=== PATIENT | female | born 1950 | race Caucasian/White ===

== ENCOUNTER 2017-01-19 09:46 | Emergency (ER) | payer OTHER ==
[~2017-01-19] VITALS: Ht 157.4 cm; Wt 110.2 kg
[~2017-01-19 09:46] MED LIST: ANTIVERT25 MG PO; ASPIRIN81 M1 PO; ATORVASTATIN CA40 MG PO; B12,B-12,B 12500 MC1 PO; BACTROBAN OINT22 GM PO; CALCIUM WITH VI1 TA1 PO; CIPROFLOXACIN500 MG PO; ETODOLAC300 MG PO; IMDUR30 MG PO; IMODIUM2 MG PO; JANUMET 500 MG-1 TA1 PO; JANUMET 500 MG-1 TAB PO; LASIX40 MG PO; LEVEMIR FLEXPEN; LEXAPRO20 MG PO; LOPERAMIDE2 MG PO; MAG-OX 400400 MG PO; METFORMIN HCL500 MG PO; METOPROLOL50 MG PO; MULTIVITAMIN WI1 CAP PO; NORVASC5 MG PO; NOVOLOG100 U/ML SC; OMEPRAZOLE20 MG PO; REQUIP0.5 MG PO; ROXICET 325 MG240 ML PO; SIMVASTATIN20 MG PO; TOPROL XL50 MG PO; VASOTEC5 MG PO; VICODIN 5/500 505 MG PO; XANAX0.25 MG PO
[2017-01-19 09:53] VITALS: BP 153/68
[2017-01-19 10:04] LABS: BASO # 0.1 10*3/uL (0.0-0.1); BASO % 0.9 % (0.0-1.0); EOS # 0.2 10*3/uL (0.0-0.4); EOS % 2.7 % (1.0-4.0); HEMATOCRIT 39.9 % (37.0-47.0); LYMPH # 2.6 10*3/uL (1.3-4.4); LYMPH % 33.7 % (27.0-41.0); MEAN CELL VOLUME 81.8 fl (81.0-99.0); MEAN CORPUSCULAR HGB 24.6 pg (27.0-31.0); MEAN CORPUSCULAR HGB CONC 30.1 g/dl (33.0-37.0); MEAN PLATELET VOLUME 10.4 fl (9.6-12.3); MONO # 0.4 10*3/uL (0.1-1.0); MONO % 5.5 % (3.0-9.0); NEUT # 4.4 10*3/uL (2.3-7.9); NEUT % 57.1 % (47.0-73.0); PLATELET COUNT AUTOMATED 320 10*3/uL (130-400); RED BLOOD COUNT 4.88 10*6/uL (4.10-5.10); RED CELL DISTRI WIDTH 14.8 % (0-14.5); WHITE BLOOD COUNT 7.7 10*3/uL (4.8-10.8)
[2017-01-19 10:21] LABS: ALBUMIN 3.4 gm/dl (3.1-4.5); ALKALINE PHOSPHATASE 115 U/L (45-117); BUN 16 mg/dl (7-24); CHLORIDE 109 mmol/L (98-107); CPK 65 U/L (26-192); CREATININE 0.66 mg/dL (0.55-1.02); LIPASE 91 U/L (73-393); MAGNESIUM 1.9 mg/dL (1.5-2.1); POTASSIUM 4.1 mmol/L (3.5-5.1); SGOT/AST 13 IU/L (3-35); SGPT/ALT 21 U/L (12-78); SODIUM 144 mmol/L (136-145); TOTAL PROTEIN 6.8 gm/dL (6.4-8.2)
[2017-01-19 10:22] LABS: CKMB < 0.5 ng/ml (0.5-3.6); TROPONIN I < 0.015 ng/ml (<0.045)
[2017-01-19 10:34] LABS: ACT PARTIAL THROMBO TIME 25.5 SECONDS (20.8-31.5)
[2017-01-19 11:58] LABS: BILIRUBIN 1+ (NEGATIVE); BLOOD NEGATIVE (NEGATIVE); CLARITY SL CLOUDY (CLEAR); COLOR YELLOW (YELLOW); GLUCOSE NEGATIVE (NEGATIVE); KETONE 1+ (NEGATIVE); LEUKO ESTERASE NEGATIVE (NEGATIVE); NITRITE NEGATIVE (NEGATIVE); PH 5.5 (5.0-9.0); SPECIFIC GRAVITY >= 1.030 (1.005-1.030); UROBILINOGEN 0.2 E.U./dl (0.2-1.0)
[2017-01-19 12:05] LABS: MUCOUS 3+
[2017-01-19 12:06] LABS: BACTERIA TRACE; CALCIUM OXALATE CRYSTALS 1+
[2017-01-19] MEDS ORDERED: NORCO 5-325 TA1 EACH PO (12:30)
== END 2017-01-19 12:49 | disposition home or self-care (01) ==
LOC: ED 09:46
PROVIDERS: Emergency Medicine
DX: S30.1XXA Contusion of abdominal wall, initial encounter (principal); Z90.710 Acquired absence of both cervix and uterus; Z98.890 Other specified postprocedural states; Z79.899 Other long term (current) drug therapy; Z79.82 Long term (current) use of aspirin; Z88.0 Allergy status to penicillin; Z88.1 Allergy status to other antibiotic agents; V49.59XA Passenger injured in collision with other motor vehicles in traffic accident, initial encounter; Y93.89 Activity, other specified; Y92.413 State road as the place of occurrence of the external cause; Y99.9 Unspecified external cause status

== ENCOUNTER 2017-04-18 21:17 | Inpatient (IN) | payer OTHER ==
[~2017-04-18] VITALS: Ht 157.5 cm; Wt 112.1 kg
--- NOTE | ~2017-04-18 | ST ---
[place], [place] EXERCISE STRESS TEST REPORT NAME: SARA CLARK [facility] #: [id number] UNIT #: [id number] ROOM: 411 DOCTOR: BRAD MCCALLUM MD BIRTHDATE: [birth year] DOS: 04/19/2017 LEXISCAN STRESS EKG REFERRING PHYSICIAN: Dr. Morales. INDICATION: Central chest pain. The patient underwent standard protocol Lexiscan stress EKG. The patient's baseline EKG shows normal sinus rhythm, nonspecific ST-T wave changes. The patient's resting heart rate is 67 with a blood pressure 124/72. The patient's peak heart rate is 99 with a blood pressure 144/70. The patient denied chest pain. No arrhythmias were noted. No significant EKG changes. No significant new EKG changes were noted. The patient does have some T-wave inversions in the inferior lateral leads that were worsened from baseline. SUMMARY OF FINDINGS: Worsening of baseline abnormalities of EKG. No chest pain ____. Please see separate report for perfusion scan results. BRAD MCCALLUM MD CM:STRESS:EXERCISE STRESS TEST REPORT [id number] BRAD MCCALLUM MD
[~2017-04-18 21:17] MED LIST changes: +NORCO 5-325 TA1 EACH PO
[2017-04-18 21:18] VITALS: BP 162/70
[2017-04-18 21:31] LABS: BASO # 0.1 10*3/uL (0.0-0.1); EOS # 0.2 10*3/uL (0.0-0.4); EOS % 2.4 % (1.0-4.0); HEMATOCRIT 38.4 % (37.0-47.0); HEMOGLOBIN 11.7 g/dl (12.0-16.0); LYMPH # 2.9 10*3/uL (1.3-4.4); LYMPH % 32.1 % (27.0-41.0); MEAN CELL VOLUME 80.7 fl (81.0-99.0); MEAN CORPUSCULAR HGB 24.6 pg (27.0-31.0); MEAN CORPUSCULAR HGB CONC 30.5 g/dl (33.0-37.0); MEAN PLATELET VOLUME 10.1 fl (9.6-12.3); MONO # 0.6 10*3/uL (0.1-1.0); NEUT # 5.1 10*3/uL (2.3-7.9); NEUT % 56.9 % (47.0-73.0); PLATELET COUNT AUTOMATED 314 10*3/uL (130-400); RED BLOOD COUNT 4.76 10*6/uL (4.10-5.10); RED CELL DISTRI WIDTH 15.9 % (0-14.5); WHITE BLOOD COUNT 8.9 10*3/uL (4.8-10.8)
[2017-04-18 21:41] LABS: ACT PARTIAL THROMBO TIME 25.1 SECONDS (20.8-31.5)
[2017-04-18 21:47] LABS: ALBUMIN 3.2 gm/dl (3.1-4.5); ALKALINE PHOSPHATASE 125 U/L (45-117); BUN 15 mg/dl (7-24); CHLORIDE 110 mmol/L (98-107); POTASSIUM 4.4 mmol/L (3.5-5.1); SGOT/AST 8 IU/L (3-35); SGPT/ALT 18 U/L (12-78); SODIUM 144 mmol/L (136-145); TOTAL PROTEIN 6.7 gm/dL (6.4-8.2)
[2017-04-18 21:48] LABS: TROPONIN I < 0.015 ng/ml (<0.045)
[2017-04-19 00:50] VITALS: BP 171/80
--- NOTE | 2017-04-19 00:50 | NUR ---
A 67, admitted to , under the services of EUN Norman DO with a diagnosis of CHEST PAIN,ELEVATED ALK PHOS, ANEMIA. Chief complaint is C/O MID STERNAL CHEST PAIN AT HOME BROUGHT HERE BY AMBULANCE, ASA AND NITRO GIVEN IN ROUTE TO HOSPITAL BY EMS, HAD NITRO X2 IN ER WITHOUT PAIN RELIEF, MORPHINE AND ZOFRAN GIVEN IN ER PAIN EFFECTIVE. CHEST PAIN MORE BURNING PER PT. Patient arrived via CART from ER. Monitor applied. Initial assessment completed. Vital signs taken and recorded. EUN NORMAN DO notified of admission to the unit. Orders received. See assessment for past medical history, medications and allergies. Patient and/or family oriented to unit. [facility] visitation policy reviewed. Clothing/patient valuable form completed. NAPOLEON PATEL
[2017-04-19 00:55] VITALS: BP 171/80
--- NOTE | 2017-04-19 01:22 | NUR ---
PT. UNABLE TO RECONCILLE HOME MEDICATIONS UNSURE OF ALL THAT SHE TAKES FORGOT TO BRING MEDICATION LIST FROM HOME. MEDS NEED RECONCILLED.
[2017-04-19 03:43] LABS: BASO # 0.1 10*3/uL (0.0-0.1); EOS # 0.3 10*3/uL (0.0-0.4); EOS % 2.7 % (1.0-4.0); HEMATOCRIT 34.7 % (37.0-47.0); HEMOGLOBIN 10.7 g/dl (12.0-16.0); LYMPH # 3.9 10*3/uL (1.3-4.4); LYMPH % 38.6 % (27.0-41.0); MEAN CELL VOLUME 79.2 fl (81.0-99.0); MEAN CORPUSCULAR HGB 24.4 pg (27.0-31.0); MEAN CORPUSCULAR HGB CONC 30.8 g/dl (33.0-37.0); MEAN PLATELET VOLUME 10.1 fl (9.6-12.3); MONO # 0.6 10*3/uL (0.1-1.0); MONO % 6.3 % (3.0-9.0); NEUT # 5.1 10*3/uL (2.3-7.9); NEUT % 51.2 % (47.0-73.0); PLATELET COUNT AUTOMATED 289 10*3/uL (130-400); RED BLOOD COUNT 4.38 10*6/uL (4.10-5.10); RED CELL DISTRI WIDTH 15.9 % (0-14.5)
[2017-04-19 03:54] LABS: ACT PARTIAL THROMBO TIME 25.1 SECONDS (20.8-31.5)
[2017-04-19 04:03] LABS: ALKALINE PHOSPHATASE 106 U/L (45-117); BUN 16 mg/dl (7-24); CHLORIDE 111 mmol/L (98-107); CHOLESTEROL 171 mg/dL (<200); CREATININE 0.55 mg/dL (0.55-1.02); PHOSPHOROUS 3.4 mg/dL (2.5-4.9); SGOT/AST 10 IU/L (3-35); SGPT/ALT 14 U/L (12-78); SODIUM 145 mmol/L (136-145); TRIGLYCERIDES 80 mg/dl (<150); VLDL CHOLESTEROL 16 mg/dL (6-40)
[2017-04-19 04:09] LABS: HDL CHOLESTEROL 37 mg/dl (40-60); LDL CHOLESTEROL 118 mg/dL (9-159)
--- NOTE | 2017-04-19 06:23 | NUR ---
called and message left with answering service for Dr. Gramajo.
[2017-04-19 07:04] LABS: VITAMIN D, 25-HYDROXY 7.5 ng/mL (30-100)
--- NOTE | 2017-04-19 07:10 | NUR ---
DR. MADRIGAL CALLED BACK AND NOTIFIED OF CONSULT AND NO ORDERS RECEIVED AT THIS TIME.
--- NOTE | 2017-04-19 08:40 | NUR ---
SETTING AT SIDE OF BED, EASY RESPIRATIONS WITH SKIN W/D. PT DENIES C/O CHEST PAIN AT PRESENT TIME. ADMITS TO S.O.B WITH EXERTION. DISCUSSED NPO STATUSUS FOR STRESS TEST, PT VOICES UNDERSTANDING. SEE SHIFT ASSESSMENT.
[2017-04-19 08:41] VITALS: BP 154/84
--- NOTE | 2017-04-19 09:00 | NUR ---
Sheet Turner in to talk to patient. Patient states lives at home with alone. There are no steps in the home. Physician: linda miller [facility]: [facility] Home health services: none Patient's level of ADLs: INDEPENDENT Patient has working utilities: all working DME: cane, walker, life alert Follow-up physician's appointment after d/c: will be made by hospialist nurse director Does patient want to access PORTAL?: no Discharge plan discussed with patient, patient lives at [facility] alone, she uses a cane or walker for ambulation, she states she gets around fine, she has neighbors take her to get groceries or for doctors appointments, patient states she will be going back home and denies any home needs DMITRI ARNETT
--- NOTE | 2017-04-19 12:01 | NUR ---
INFORMED CONSENT SIGNED FOR A LEXISCAN WITH DR. MCCALLUM. RESTING EKG NSR WITH A HR OF 67 WITH A BP OF 124/72. POX 94% VIA RA LUNGS CLEAR BILATERALLY. COMPLETED ONE MINUTE OF LEXISCAN PROTOCOL RECEIVING LEXISCAN 0.4 MG OVER 10 SECONDS. DEVELOPED A WARM FEELING AND VOICED "ODD." BOTH RELIEVED IN RECOVERY. PEAK HR OF 99 WITH A BP OF 144/70. LAST RECOVERY HR OF 81 WITH A BP OF 142/64. AWAITING NUCLEAR IMAGING IN STABLE CONDITION.
[2017-04-19] MEDS ORDERED: CYMBALTA20 M1 PO (13:51)
[2017-04-19] MEDS ORDERED: ZESTRIL10 MG PO (13:51)
--- NOTE | 2017-04-19 13:53 | NUR ---
AFTER CALLING TWO DIFFERENT PHARMACIES, MED REC NOW UPDATED & CORRECT. WILL NOTIFY DR CRUMP.
[2017-04-19 16:00] VITALS: BP 166/84
--- NOTE | 2017-04-19 17:53 | NUR ---
MEDICATED PO ORDERED PER PT REQUEST FOR C/O OCAMPO. SEE EMAR.
[2017-04-19 20:00] VITALS: BP 160/64
[2017-04-20] VITALS: BP 158/62
[2017-04-20 08:00] VITALS: BP 122/78
--- NOTE | 2017-04-20 08:00 | NUR ---
RESTING AT SIDE OF BED, EATING BREAKFAST. CONTINUES TO DENY C/O CHEST PAIN. ADMITS TO MILD S.O.B WITH AMBULATION. SEE SHIFT ASSESSMENT.
--- NOTE | 2017-04-20 09:00 | NUR ---
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
--- NOTE | 2017-04-20 09:15 | NUR ---
SW SPOKE WITH PT ABOT DISCHARGE PLANS. PT AGREED TO HOME HEALTH WITH [facility] FOR NURSE AND PT. SW WILL MAKE REFERRAL UPON DISCHARGE.
--- NOTE | 2017-04-20 09:24 | NUR ---
FRIDA WASHINGTON IN TO SEE PT.
--- NOTE | 2017-04-20 09:28 | NUR ---
TYLENOL PO ORDERED PER PT REQUEST FOR C/O FRONTAL OCAMPO. SEE EMAR.
[2017-04-20 12:00] VITALS: BP 184/60
[2017-04-20 14:00] VITALS: BP 184/60
--- NOTE | 2017-04-20 14:02 | NUR ---
MEDICATED IV SLOWLY ORDERED PER PT REQUEST WITH ZOFRAN FOR C/O NAUSEA. SEE EMAR.
--- NOTE | 2017-04-20 14:47 | NUR ---
DR MCCALLUM IN TO SEE PT.
[2017-04-20] MEDS ORDERED: Vitamin D PO (16:20)
[2017-04-20] MEDS ORDERED: FEROSUL325 MG PO (16:32)
--- NOTE | 2017-04-20 18:09 | NUR ---
Discharge instructions reviewed with patient/family. Patient receptive and verbalizes understanding. Written instructions given to patient/family. ALYSSA SANCHEZ
--- NOTE | 2017-04-23 09:17 | NUR ---
SW FAXED REFERRAL TO [facility].
--- NOTE | 2017-04-23 10:49 | NUR ---
SW RECEIVED VM FROM [facility]. [facility] CAN NOT ACCEPT PT DUE TO [place] PRODUCT OF CARE AND CAID. PT CAN NOT HAVE SERVICES OUTSIDE OF [place].
== END 2017-04-20 18:08 | disposition home health service (06) | DRG 206 ==
LOC: ED 21:17 → 4E 04-19 00:23 → EDHOLD 04-19 00:23 → 4E 04-19 00:36
PROVIDERS: Emergency Medicine; Family Medicine; ADMIT Internal Medicine
PROC: 3E073KZ Introduction of Other Diagnostic Substance into Coronary Artery, Percutaneous Approach (ICD-10-PCS; principal; 2017-04-19)
PROC: 4A02XM4 Measurement of Cardiac Total Activity, External Approach (ICD-10-PCS; principal; 2017-04-19)
DX: M94.0 Chondrocostal junction syndrome [Tietze] (principal); I11.0 Hypertensive heart disease with heart failure; I50.9 Heart failure, unspecified; E78.5 Hyperlipidemia, unspecified; D50.9 Iron deficiency anemia, unspecified; F32.9 Major depressive disorder, single episode, unspecified; E11.9 Type 2 diabetes mellitus without complications; Z66 Do not resuscitate; Z51.5 Encounter for palliative care; R74.8 Abnormal levels of other serum enzymes; Z96.653 Presence of artificial knee joint, bilateral; F41.1 Generalized anxiety disorder; G25.81 Restless legs syndrome; Z86.73 Personal history of transient ischemic attack (TIA), and cerebral infarction without residual deficits; Z82.49 Family history of ischemic heart disease and other diseases of the circulatory system; Z82.3 Family history of stroke; Z79.899 Other long term (current) drug therapy; Z88.0 Allergy status to penicillin; Z91.048 Other nonmedicinal substance allergy status; Z79.82 Long term (current) use of aspirin; Z79.4 Long term (current) use of insulin; Z79.84 Long term (current) use of oral hypoglycemic drugs; Z90.710 Acquired absence of both cervix and uterus; Z83.3 Family history of diabetes mellitus; Z81.8 Family history of other mental and behavioral disorders; Z90.49 Acquired absence of other specified parts of digestive tract; Z98.84 Bariatric surgery status

== ENCOUNTER 2018-01-12 18:10 | Inpatient (IN) | payer OTHER, MEDICARE ==
[~2018-01-12] VITALS: Ht 160 cm; Wt 104.1 kg
--- NOTE | ~2018-01-12 | EKG ---
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 Electronically Signed On 01-13-2018 6:30:36 PDT by Barby Morin MD CM:EKGRPT:ELECTROCARDIOGRAM REPORT [id number] ALISIA NEWMAN DRAFT REPORT ALISIA HILL DO
[~2018-01-12 18:10] MED LIST changes: +CYMBALTA20 M1 PO; +FEROSUL325 MG PO; +Vitamin D PO; +ZESTRIL10 MG PO
[2018-01-12 18:13] VITALS: BP 172/70
[2018-01-12 18:49] LABS: BASO # 0.1 10*3/uL (0.0-0.1); EOS # 0.2 10*3/uL (0.0-0.4); EOS % 1.8 % (1.0-4.0); HEMATOCRIT 40.3 % (37.0-47.0); LYMPH # 3.1 10*3/uL (1.3-4.4); LYMPH % 35.1 % (27.0-41.0); MEAN CELL VOLUME 79.3 fl (81.0-99.0); MEAN CORPUSCULAR HGB 23.6 pg (27.0-31.0); MEAN CORPUSCULAR HGB CONC 29.8 g/dl (33.0-37.0); MEAN PLATELET VOLUME 11.8 fl (9.6-12.3); MONO # 0.5 10*3/uL (0.1-1.0); MONO % 5.5 % (3.0-9.0); NEUT # 4.9 10*3/uL (2.3-7.9); NEUT % 56.3 % (47.0-73.0); PLATELET COUNT AUTOMATED 291 10*3/uL (130-400); RED BLOOD COUNT 5.08 10*6/uL (4.10-5.10); RED CELL DISTRI WIDTH 15.8 % (0-14.5); WHITE BLOOD COUNT 8.7 10*3/uL (4.8-10.8)
[2018-01-12 18:59] LABS: ACT PARTIAL THROMBO TIME 24.7 SECONDS (20.8-31.5); INTERNATIONAL NORM RATIO 0.9 (2.0-3.5)
[2018-01-12 19:05] LABS: ALBUMIN 3.4 gm/dl (3.1-4.5); ALKALINE PHOSPHATASE 124 U/L (45-117); BUN 19 mg/dl (7-24); CHLORIDE 111 mmol/L (98-107); CREATININE 0.82 mg/dL (0.55-1.02); LIPASE 81 U/L (73-393); POTASSIUM 4.2 mmol/L (3.5-5.1); SGOT/AST 22 IU/L (3-35); SGPT/ALT 20 U/L (12-78); SODIUM 144 mmol/L (136-145); TROPONIN I < 0.015 ng/ml (<0.045)
[2018-01-12 19:27] VITALS: BP 178/64
[2018-01-12 19:33] LABS: BILIRUBIN NEGATIVE (NEGATIVE); BLOOD NEGATIVE (NEGATIVE); CLARITY SL CLOUDY (CLEAR); COLOR YELLOW (YELLOW); GLUCOSE NEGATIVE (NEGATIVE); KETONE TRACE (NEGATIVE); LEUKO ESTERASE TRACE (NEGATIVE); NITRITE NEGATIVE (NEGATIVE)
[2018-01-12 19:53] LABS: RBC TNTC rbc/hpf (0-2)
[2018-01-12 19:54] LABS: MUCOUS TRACE
[2018-01-12 20:24] VITALS: BP 190/70
[2018-01-12 21:01] VITALS: BP 190/70
[2018-01-12 21:11] VITALS: BP 180/78
[2018-01-13] VITALS (9 sets, daily range): BP systolic 143–168; BP diastolic 51–108
[2018-01-13 06:01] LABS: BASO # 0.1 10*3/uL (0.0-0.1); EOS # 0.1 10*3/uL (0.0-0.4); HEMOGLOBIN 10.5 g/dl (12.0-16.0); LYMPH # 3.2 10*3/uL (1.3-4.4); LYMPH % 44.9 % (27.0-41.0); MEAN CELL VOLUME 80.7 fl (81.0-99.0); MEAN CORPUSCULAR HGB 23.5 pg (27.0-31.0); MEAN CORPUSCULAR HGB CONC 29.2 g/dl (33.0-37.0); MEAN PLATELET VOLUME 11.9 fl (9.6-12.3); MONO # 0.4 10*3/uL (0.1-1.0); MONO % 6.2 % (3.0-9.0); NEUT # 3.2 10*3/uL (2.3-7.9); NEUT % 45.6 % (47.0-73.0); PLATELET COUNT AUTOMATED 241 10*3/uL (130-400); RED BLOOD COUNT 4.46 10*6/uL (4.10-5.10); RED CELL DISTRI WIDTH 15.7 % (0-14.5); WHITE BLOOD COUNT 7.1 10*3/uL (4.8-10.8)
[2018-01-13 06:31] LABS: BUN 17 mg/dl (7-24); CHLORIDE 110 mmol/L (98-107); CHOLESTEROL 138 mg/dL (<200); CREATININE 0.58 mg/dL (0.55-1.02); HDL CHOLESTEROL 33 mg/dl (40-60); LDL CHOLESTEROL 91 mg/dL (9-159); PHOSPHOROUS 3.4 mg/dL (2.5-4.9); POTASSIUM 3.7 mmol/L (3.5-5.1); SODIUM 146 mmol/L (136-145); TRIGLYCERIDES 69 mg/dl (<150); VLDL CHOLESTEROL 14 mg/dL (6-40)
[2018-01-13 08:04] LABS: VITAMIN D, 25-HYDROXY 7.8 ng/mL (30-100)
[2018-01-14] VITALS: BP 158/68
[2018-01-14 04:00] VITALS: BP 144/55
[2018-01-14 06:30] LABS: BASO # 0.1 10*3/uL (0.0-0.1); BASO % 1.2 % (0.0-1.0); EOS # 0.2 10*3/uL (0.0-0.4); EOS % 2.6 % (1.0-4.0); HEMATOCRIT 36.8 % (37.0-47.0); HEMOGLOBIN 11.1 g/dl (12.0-16.0); LYMPH # 2.6 10*3/uL (1.3-4.4); LYMPH % 38.4 % (27.0-41.0); MEAN CORPUSCULAR HGB 23.8 pg (27.0-31.0); MEAN CORPUSCULAR HGB CONC 30.2 g/dl (33.0-37.0); MEAN PLATELET VOLUME 11.5 fl (9.6-12.3); MONO # 0.5 10*3/uL (0.1-1.0); MONO % 7.1 % (3.0-9.0); NEUT # 3.4 10*3/uL (2.3-7.9); NEUT % 50.4 % (47.0-73.0); PLATELET COUNT AUTOMATED 241 10*3/uL (130-400); RED BLOOD COUNT 4.66 10*6/uL (4.10-5.10); RED CELL DISTRI WIDTH 15.9 % (0-14.5); WHITE BLOOD COUNT 6.6 10*3/uL (4.8-10.8)
[2018-01-14 06:40] LABS: BUN 16 mg/dl (7-24); CHLORIDE 109 mmol/L (98-107); CREATININE 0.47 mg/dL (0.55-1.02); POTASSIUM 3.9 mmol/L (3.5-5.1); SODIUM 144 mmol/L (136-145)
[2018-01-14 12:00] VITALS: BP 150/60
[2018-01-14 16:00] VITALS: BP 136/58
[2018-01-14] MEDS ORDERED: LISINOPRIL10 M1 PO (16:56)
== END 2018-01-14 17:49 | disposition home health service (06) | DRG 312 ==
LOC: ED 18:10 → EDHOLD 20:41 → 4E 20:41
PROVIDERS: Emergency Medicine; Internal Medicine; Student in an Organized Health Care Education/Training Program
DX: I95.1 Orthostatic hypotension (principal); I50.32 Chronic diastolic (congestive) heart failure; E87.0 Hyperosmolality and hypernatremia; E44.1 Mild protein-calorie malnutrition; Z68.41 Body mass index [BMI] 40.0-44.9, adult; I16.0 Hypertensive urgency; E87.8 Other disorders of electrolyte and fluid balance, not elsewhere classified; E78.2 Mixed hyperlipidemia; R74.8 Abnormal levels of other serum enzymes; G25.81 Restless legs syndrome; R73.03 Prediabetes; E55.9 Vitamin D deficiency, unspecified; E53.8 Deficiency of other specified B group vitamins; D50.9 Iron deficiency anemia, unspecified; R00.1 Bradycardia, unspecified; F32.9 Major depressive disorder, single episode, unspecified; F41.1 Generalized anxiety disorder; I11.0 Hypertensive heart disease with heart failure; M19.90 Unspecified osteoarthritis, unspecified site; Z96.653 Presence of artificial knee joint, bilateral; Z90.49 Acquired absence of other specified parts of digestive tract; Z90.710 Acquired absence of both cervix and uterus; Z98.84 Bariatric surgery status; Z86.73 Personal history of transient ischemic attack (TIA), and cerebral infarction without residual deficits; Z82.3 Family history of stroke; Z82.49 Family history of ischemic heart disease and other diseases of the circulatory system; Z91.048 Other nonmedicinal substance allergy status; Z88.0 Allergy status to penicillin

== ENCOUNTER 2019-01-05 16:22 | Inpatient (IN) | payer OTHER ==
[~2019-01-05] VITALS: Ht 170.1 cm; Wt 108.0 kg
--- NOTE | ~2019-01-05 | EKG ---
[place], [place] ELECTROCARDIOGRAM REPORT NAME: SARA CLARK UNIT #: [id number] ROOM: 504 DOCTOR: MYLES DRAFT REPORT BIRTHDATE: [birth year] [facility] Test Date: 2019-01-05 Test Time: 18:30:39 Pat Name: SARA CLARK Department: Room: 504 Gender: F I O Psychologist: Aruna Saab : 1950 Requested By: PARISA FISCHER Order Number: [id number] Reading MD: Daniel Simons MD Measurements Intervals [place] Rate: 61 P: 12 TN: 155 QRS: 22 QRSD: 73 T: 91 QT: 422 QTc: 425 Interpretive Statements Sinus arrhythmia Borderline T abnormalities, lateral leads Compared to ECG 01/12/2018 18:49:42 T-wave abnormality now present Electronically Signed On 01-06-2019 10:58:55 PDT by Daniel Simons MD CM:EKGRPT:ELECTROCARDIOGRAM REPORT [id number] ANUROOP AVULA EPIPHANY DRAFT REPORT ANUROOP AVULA
[2019-01-05 16:22] VITALS: BP 187/72
[~2019-01-05 16:22] MED LIST changes: +LISINOPRIL10 M1 PO
[2019-01-05 17:36] LABS: BASO # 0.1 10*3/uL (0.0-0.1); BASO % 1.2 % (0.0-1.0); EOS # 0.2 10*3/uL (0.0-0.4); EOS % 1.8 % (1.0-4.0); HEMATOCRIT 39.4 % (37.0-47.0); HEMOGLOBIN 11.3 g/dl (12.0-16.0); LYMPH # 2.8 10*3/uL (1.3-4.4); LYMPH % 32.8 % (27.0-41.0); MEAN CELL VOLUME 78.6 fl (81.0-99.0); MEAN CORPUSCULAR HGB 22.6 pg (27.0-31.0); MEAN CORPUSCULAR HGB CONC 28.7 g/dl (33.0-37.0); MEAN PLATELET VOLUME 11.2 fl (9.6-12.3); MONO # 0.6 10*3/uL (0.1-1.0); MONO % 6.6 % (3.0-9.0); NEUT # 4.9 10*3/uL (2.3-7.9); NEUT % 57.2 % (47.0-73.0); PLATELET COUNT AUTOMATED 297 10*3/uL (130-400); RED BLOOD COUNT 5.01 10*6/uL (4.10-5.10); RED CELL DISTRI WIDTH 16.7 % (0-14.5); WHITE BLOOD COUNT 8.5 10*3/uL (4.8-10.8)
[2019-01-05 17:47] LABS: ACT PARTIAL THROMBO TIME 26.3 SECONDS (20.0-32.1); INTERNATIONAL NORM RATIO 0.9 (2.0-3.5)
[2019-01-05 17:54] LABS: ALBUMIN 3.6 gm/dl (3.1-4.5); ALKALINE PHOSPHATASE 119 U/L (45-117); BUN 17 mg/dl (7-24); CHLORIDE 108 mmol/L (98-107); CREATININE 0.69 mg/dL (0.55-1.02); POTASSIUM 4.3 mmol/L (3.5-5.1); SGOT/AST 7 IU/L (3-35); SGPT/ALT 14 U/L (12-78); SODIUM 141 mmol/L (136-145); TOTAL PROTEIN 6.9 gm/dL (6.4-8.2)
[2019-01-05 17:57] LABS: TROPONIN I < 0.015 ng/ml (<0.045)
[2019-01-05 18:02] LABS: BILIRUBIN NEGATIVE (NEGATIVE); BLOOD NEGATIVE (NEGATIVE); CLARITY SL CLOUDY (CLEAR); COLOR YELLOW (YELLOW); GLUCOSE NEGATIVE (NEGATIVE); KETONE NEGATIVE (NEGATIVE); LEUKO ESTERASE NEGATIVE (NEGATIVE); NITRITE NEGATIVE (NEGATIVE)
[2019-01-05 18:06] VITALS: BP 188/61
[2019-01-05 18:12] LABS: EPITHELIAL CELLS TNTC
[2019-01-05 18:13] LABS: BACTERIA 1+
[2019-01-05 20:00] VITALS: BP 183/70
[2019-01-05 21:19] VITALS: BP 155/58
[2019-01-06] VITALS: BP 135/41
[2019-01-06 04:00] VITALS: BP 145/49
[2019-01-06 06:40] LABS: BASO # 0.1 10*3/uL (0.0-0.1); BASO % 1.3 % (0.0-1.0); EOS # 0.1 10*3/uL (0.0-0.4); HEMATOCRIT 35.5 % (37.0-47.0); HEMOGLOBIN 10.2 g/dl (12.0-16.0); LYMPH # 2.7 10*3/uL (1.3-4.4); LYMPH % 37.1 % (27.0-41.0); MEAN CORPUSCULAR HGB 22.4 pg (27.0-31.0); MEAN CORPUSCULAR HGB CONC 28.7 g/dl (33.0-37.0); MEAN PLATELET VOLUME 11.4 fl (9.6-12.3); MONO # 0.5 10*3/uL (0.1-1.0); MONO % 7.4 % (3.0-9.0); NEUT # 3.7 10*3/uL (2.3-7.9); NEUT % 51.9 % (47.0-73.0); PLATELET COUNT AUTOMATED 250 10*3/uL (130-400); RED BLOOD COUNT 4.55 10*6/uL (4.10-5.10); RED CELL DISTRI WIDTH 16.6 % (0-14.5); WHITE BLOOD COUNT 7.2 10*3/uL (4.8-10.8)
[2019-01-06 07:00] LABS: ALBUMIN 3.1 gm/dl (3.1-4.5); ALKALINE PHOSPHATASE 103 U/L (45-117); BUN 18 mg/dl (7-24); CHLORIDE 109 mmol/L (98-107); CHOLESTEROL 146 mg/dL (<200); CREATININE 0.61 mg/dL (0.55-1.02); HDL CHOLESTEROL 35 mg/dl (40-60); LDL CHOLESTEROL 95 mg/dL (9-159); PHOSPHOROUS 4.1 mg/dL (2.5-4.9); POTASSIUM 4.1 mmol/L (3.5-5.1); SGOT/AST 9 IU/L (3-35); SGPT/ALT 13 U/L (12-78); SODIUM 143 mmol/L (136-145); TOTAL PROTEIN 5.8 gm/dL (6.4-8.2); TRIGLYCERIDES 81 mg/dl (<150); VLDL CHOLESTEROL 16 mg/dL (6-40)
[2019-01-06 07:03] LABS: ACT PARTIAL THROMBO TIME 26.3 SECONDS (20.0-32.1)
[2019-01-06 07:54] LABS: VITAMIN D, 25-HYDROXY 15.1 ng/mL (30-100)
[2019-01-06 08:00] VITALS: BP 146/78
[2019-01-06 12:00] VITALS: BP 134/48
[2019-01-06 16:00] VITALS: BP 136/54
[2019-01-06 20:00] VITALS: BP 100/45
[2019-01-07] VITALS: BP 113/56
[2019-01-07] MEDS ORDERED: LISINOPRIL10 M1 PO (10:15)
[2019-01-07] MEDS ORDERED: VITAMIN B-12100 MCG PO (10:15)
[2019-01-07] MEDS ORDERED: VITAMIN D5000 UNI1 PO (10:15)
[2019-01-07 12:00] VITALS: BP 182/58
[2019-01-07 12:47] VITALS: BP 182/58
[2019-01-07 13:38] VITALS: BP 140/68
== END 2019-01-07 15:15 | disposition home or self-care (01) | DRG 305 ==
LOC: ED 16:22 → 5E 18:05 → EDHOLD 18:05 → 5E 18:27
PROVIDERS: Emergency Medicine; Hospitalist; ADMIT Internal Medicine
DX: I16.0 Hypertensive urgency (principal); I50.22 Chronic systolic (congestive) heart failure; E44.1 Mild protein-calorie malnutrition; Z68.41 Body mass index [BMI] 40.0-44.9, adult; E78.5 Hyperlipidemia, unspecified; E78.2 Mixed hyperlipidemia; F41.1 Generalized anxiety disorder; F32.9 Major depressive disorder, single episode, unspecified; G25.81 Restless legs syndrome; E53.8 Deficiency of other specified B group vitamins; E55.9 Vitamin D deficiency, unspecified; E87.8 Other disorders of electrolyte and fluid balance, not elsewhere classified; I11.0 Hypertensive heart disease with heart failure; M19.90 Unspecified osteoarthritis, unspecified site; Z96.653 Presence of artificial knee joint, bilateral; Z88.0 Allergy status to penicillin; Z86.73 Personal history of transient ischemic attack (TIA), and cerebral infarction without residual deficits; Z90.49 Acquired absence of other specified parts of digestive tract; Z90.710 Acquired absence of both cervix and uterus; Z98.84 Bariatric surgery status

== ENCOUNTER 2019-02-10 15:16 | Emergency (ER) | payer OTHER ==
[~2019-02-10] VITALS: Ht 157.4 cm; Wt 117.9 kg
[~2019-02-10 15:16] MED LIST changes: +VITAMIN B-12100 MCG PO; +VITAMIN D5000 UNI1 PO
[2019-02-10 15:27] VITALS: BP 178/52
[2019-02-10] MEDS ORDERED: ANAPROX DS550 MG PO (16:55)
== END 2019-02-10 16:56 | disposition home or self-care (01) ==
LOC: ED 15:16
DX: S20.211A Contusion of right front wall of thorax, initial encounter (principal); I50.9 Heart failure, unspecified; F17.200 Nicotine dependence, unspecified, uncomplicated; Z88.0 Allergy status to penicillin; Z79.899 Other long term (current) drug therapy; Z90.710 Acquired absence of both cervix and uterus; Z90.49 Acquired absence of other specified parts of digestive tract; X50.1XXA Overexertion from prolonged static or awkward postures, initial encounter; Y93.E2 Activity, laundry; Y92.098 Other place in other non-institutional residence as the place of occurrence of the external cause; Y99.8 Other external cause status

== ENCOUNTER 2019-04-06 08:12 | Emergency (ER) | payer OTHER ==
[~2019-04-06] VITALS: Ht 160 cm; Wt 111.6 kg
--- NOTE | ~2019-04-06 | EKG ---
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
[~2019-04-06 08:12] MED LIST changes: +ANAPROX DS550 MG PO
[2019-04-06 08:51] LABS: BILIRUBIN 1+ (NEGATIVE); BLOOD NEGATIVE (NEGATIVE); CLARITY CLOUDY (CLEAR); COLOR YELLOW (YELLOW); GLUCOSE NEGATIVE (NEGATIVE); KETONE NEGATIVE (NEGATIVE); LEUKO ESTERASE NEGATIVE (NEGATIVE); NITRITE NEGATIVE (NEGATIVE); PH 5.5 (5.0-9.0); SPECIFIC GRAVITY >= 1.030 (1.005-1.030); UROBILINOGEN 0.2 E.U./dl (0.2-1.0)
[2019-04-06 08:55] LABS: BASO # 0.1 10*3/uL (0.0-0.1); BASO % 1.3 % (0.0-1.0); EOS # 0.2 10*3/uL (0.0-0.4); EOS % 2.1 % (1.0-4.0); HEMATOCRIT 37.2 % (37.0-47.0); HEMOGLOBIN 10.4 g/dl (12.0-16.0); LYMPH # 2.3 10*3/uL (1.3-4.4); LYMPH % 29.9 % (27.0-41.0); MEAN CELL VOLUME 79.5 fl (81.0-99.0); MEAN CORPUSCULAR HGB 22.2 pg (27.0-31.0); MEAN PLATELET VOLUME 10.8 fl (9.6-12.3); MONO # 0.5 10*3/uL (0.1-1.0); MONO % 6.5 % (3.0-9.0); NEUT # 4.5 10*3/uL (2.3-7.9); NEUT % 59.9 % (47.0-73.0); PLATELET COUNT AUTOMATED 324 10*3/uL (130-400); RED BLOOD COUNT 4.68 10*6/uL (4.10-5.10); WHITE BLOOD COUNT 7.5 10*3/uL (4.8-10.8)
[2019-04-06 09:02] LABS: BACTERIA 2+; CALCIUM OXALATE CRYSTALS 3+; EPITHELIAL CELLS 35-40; WBC 0-2 wbc/hpf (0-5)
[2019-04-06 09:07] LABS: ACT PARTIAL THROMBO TIME 25.9 SECONDS (20.0-32.1)
[2019-04-06 09:12] LABS: BUN 16 mg/dl (7-24); CHLORIDE 114 mmol/L (98-107); CREATININE 0.69 mg/dL (0.55-1.02); SODIUM 145 mmol/L (136-145)
[2019-04-06 09:13] LABS: TROPONIN I < 0.015 ng/ml (<0.045)
[2019-04-06 09:45] VITALS: BP 168/62
[2019-04-06] MEDS ORDERED: ZESTORETIC 10-1 EACH PO (09:57)
[2019-04-06] MEDS ORDERED: ANTIFUNGAL113 GM T (12:23)
== END 2019-04-06 10:00 | disposition home or self-care (01) ==
LOC: ED 08:12
PROVIDERS: Emergency Medicine
DX: I11.0 Hypertensive heart disease with heart failure (principal); I50.9 Heart failure, unspecified; E78.5 Hyperlipidemia, unspecified; I25.10 Atherosclerotic heart disease of native coronary artery without angina pectoris; E11.9 Type 2 diabetes mellitus without complications; M19.90 Unspecified osteoarthritis, unspecified site; Z90.710 Acquired absence of both cervix and uterus; Z90.49 Acquired absence of other specified parts of digestive tract; Z88.0 Allergy status to penicillin; Z88.2 Allergy status to sulfonamides; Z79.899 Other long term (current) drug therapy; Z86.73 Personal history of transient ischemic attack (TIA), and cerebral infarction without residual deficits

== ENCOUNTER 2021-05-10 12:25 | Emergency (ER) | payer OTHER ==
[~2021-05-10 12:25] MED LIST changes: +ANTIFUNGAL113 GM T; +ZESTORETIC 10-1 EACH PO
[2021-05-10 17:38] VITALS: BP 179/58
== END 2021-05-10 18:17 | disposition home or self-care (01) ==
LOC: ED 12:25
DX: S80.02XA Contusion of left knee, initial encounter (principal); Z88.0 Allergy status to penicillin; Z88.2 Allergy status to sulfonamides; W01.0XXA Fall on same level from slipping, tripping and stumbling without subsequent striking against object, initial encounter; Y93.89 Activity, other specified; Y92.89 Other specified places as the place of occurrence of the external cause; Y99.8 Other external cause status

== ENCOUNTER 2021-10-19 10:54 | Emergency (ER) | payer OTHER ==
[~2021-10-19] VITALS: Wt 92.5 kg
[2021-10-19 11:25] LABS: BASO % 0.5 % (0.0-1.0); EOS # 0.1 10*3/uL (0.0-0.4); EOS % 0.8 % (1.0-4.0); HEMATOCRIT 36.9 % (37.0-47.0); LYMPH # 1.4 10*3/uL (1.3-4.4); LYMPH % 15.9 % (27.0-41.0); MEAN CELL VOLUME 74.1 fl (81.0-99.0); MEAN CORPUSCULAR HGB 21.3 pg (27.0-31.0); MEAN CORPUSCULAR HGB CONC 28.7 g/dl (33.0-37.0); MEAN PLATELET VOLUME 9.9 fl (9.6-12.3); MONO # 0.6 10*3/uL (0.1-1.0); MONO % 6.8 % (3.0-9.0); NEUT # 6.3 10*3/uL (2.3-7.9); NEUT % 74.5 % (47.0-73.0); PLATELET COUNT AUTOMATED 374 10*3/uL (130-400); RED BLOOD COUNT 4.98 10*6/uL (4.10-5.10); RED CELL DISTRI WIDTH 19.6 % (0-14.5); WHITE BLOOD COUNT 8.5 10*3/uL (4.8-10.8)
[2021-10-19 11:39] LABS: ALKALINE PHOSPHATASE 108 U/L (45-117); BUN 12 mg/dl (7-24); CHLORIDE 107 mmol/L (98-107); CREATININE 0.61 mg/dL (0.55-1.02); POTASSIUM 3.2 mmol/L (3.5-5.1); SGOT/AST 6 IU/L (3-35); SGPT/ALT 16 U/L (12-78); SODIUM 141 mmol/L (136-145); TOTAL PROTEIN 6.5 gm/dL (6.4-8.2)
[2021-10-19 14:08] LABS: BILIRUBIN Negative (Negative); BLOOD Negative (Negative); CLARITY Cloudy (Clear); COLOR Yellow (Yellow); GLUCOSE Negative (Negative); KETONE 4+ (Negative); LEUKO ESTERASE 2+ (Negative); NITRITE Positive (Negative)
[2021-10-19 14:26] LABS: BACTERIA 2+; MUCOUS 1+; WBC 21-30 wbc/hpf (0-5)
[2021-10-19 15:17] VITALS: BP 123/72
[2021-10-19] MEDS ORDERED: CEFUROXIME AXE500 MG PO (16:13)
== END 2021-10-19 18:19 | disposition home or self-care (01) ==
LOC: ED 10:54
PROVIDERS: Physician Assistant
DX: N39.0 Urinary tract infection, site not specified (principal); R22.0 Localized swelling, mass and lump, head; Z90.49 Acquired absence of other specified parts of digestive tract; Z90.710 Acquired absence of both cervix and uterus; Z98.890 Other specified postprocedural states; Z88.0 Allergy status to penicillin; Z88.2 Allergy status to sulfonamides; W18.30XA Fall on same level, unspecified, initial encounter; Y93.89 Activity, other specified; Y92.89 Other specified places as the place of occurrence of the external cause; Y99.9 Unspecified external cause status

== ENCOUNTER 2022-03-06 20:34 | Emergency (ER) | payer OTHER ==
[~2022-03-06] VITALS: Ht 170.1 cm; Wt 93.9 kg
[~2022-03-06 20:34] MED LIST changes: +ASPIRIN ADULT L81 M2 PO; +ATORVASTATIN CA40 M1 PO; +B-12500 MC1 PO; +CEFUROXIME AXE500 MG PO; +VITAMIN D3125 MCG PO; +ZESTRIL20 MG PO
[2022-03-06 20:39] VITALS: BP 149/50
[2022-03-06 21:30] LABS: BASO # 0.1 10*3/uL (0.0-0.1); BASO % 0.9 % (0.0-1.0); EOS # 0.1 10*3/uL (0.0-0.4); EOS % 0.7 % (1.0-4.0); HEMATOCRIT 36.5 % (37.0-47.0); LYMPH # 2.2 10*3/uL (1.3-4.4); LYMPH % 23.8 % (27.0-41.0); MEAN CORPUSCULAR HGB 22.2 pg (27.0-31.0); MEAN CORPUSCULAR HGB CONC 28.8 g/dl (33.0-37.0); MEAN PLATELET VOLUME 10.8 fl (9.6-12.3); MONO # 0.6 10*3/uL (0.1-1.0); MONO % 5.9 % (3.0-9.0); NEUT # 6.4 10*3/uL (2.3-7.9); NEUT % 68.4 % (47.0-73.0); PLATELET COUNT AUTOMATED 298 10*3/uL (130-400); RED BLOOD COUNT 4.74 10*6/uL (4.10-5.10); WHITE BLOOD COUNT 9.4 10*3/uL (4.8-10.8)
[2022-03-06 21:52] LABS: ALKALINE PHOSPHATASE 123 U/L (45-117); BUN 19 mg/dl (7-24); CHLORIDE 113 mmol/L (98-107); CREATININE 0.61 mg/dL (0.55-1.02); POTASSIUM 4.1 mmol/L (3.5-5.1); SGOT/AST 5 IU/L (3-35); SGPT/ALT 15 U/L (12-78); SODIUM 145 mmol/L (136-145); TOTAL PROTEIN 6.5 gm/dL (6.4-8.2)
== END 2022-03-06 22:45 | disposition home or self-care (01) ==
LOC: ED 20:34
PROVIDERS: Nurse Practitioner Family
DX: R56.9 Unspecified convulsions (principal); Z90.710 Acquired absence of both cervix and uterus; Z98.890 Other specified postprocedural states; Z90.49 Acquired absence of other specified parts of digestive tract; Z88.0 Allergy status to penicillin; Z88.2 Allergy status to sulfonamides

== ENCOUNTER 2024-01-06 10:29 | Emergency (ER) | payer OTHER ==
[~2024-01-06 10:29] MED LIST changes: +ASPIRIN ADULT L81 M1 PO; +ATORVASTATIN CA80 M1 PO; +CIPROFLOXACIN250 MG PO; +CIPROFLOXACIN500 M4 PO; +CLOPIDOGREL75 MG PO; +LIPITOR40 MG PO; +MASON NATURAL325 MG PO; +PLAVIX75 M1 PO; +VITAMIN B-12250 MCG PO; +VITAMIN D350 MC2 PO
[2024-01-06 10:35] VITALS: BP 130/51
[2024-01-06] MEDS ORDERED: MORPHINE Sulfate 2 MG/ML SYR IV ONE (10:35)
[2024-01-06] MEDS ORDERED: Ondansetron Hydrochloride 4 MG/2 ML VIAL IV ONE (10:35)
[2024-01-06 10:50] LABS: BASO # 0.1 10*3/uL (0.0-0.1); BASO % 1.9 % (0.0-1.0); EOS # 0.1 10*3/uL (0.0-0.4); EOS % 1.7 % (1.0-4.0); HEMATOCRIT 38.5 % (37.0-47.0); LYMPH # 1.7 10*3/uL (1.3-4.4); LYMPH % 32.8 % (27.0-41.0); MEAN CELL VOLUME 90.8 fl (81.0-99.0); MEAN CORPUSCULAR HGB 27.4 pg (27.0-31.0); MEAN CORPUSCULAR HGB CONC 30.1 g/dl (33.0-37.0); MEAN PLATELET VOLUME 9.4 fl (9.6-12.3); MONO # 0.4 10*3/uL (0.1-1.0); PLATELET COUNT AUTOMATED 321 10*3/uL (130-400); RED BLOOD COUNT 4.24 10*6/uL (4.10-5.10); RED CELL DISTRI WIDTH 15.6 % (0-14.5); WHITE BLOOD COUNT 5.3 10*3/uL (4.8-10.8)
[2024-01-06 11:16] LABS: BUN 13 mg/dl (9-23); CHLORIDE 111 mmol/L (98-107)
== END 2024-01-06 13:01 | disposition home or self-care (01) ==
LOC: ED 10:29
PROVIDERS: Emergency Medicine
DX: R07.89 Other chest pain (principal); M79.602 Pain in left arm; I11.0 Hypertensive heart disease with heart failure; I50.9 Heart failure, unspecified; I25.10 Atherosclerotic heart disease of native coronary artery without angina pectoris; E11.9 Type 2 diabetes mellitus without complications; E78.5 Hyperlipidemia, unspecified; Z88.0 Allergy status to penicillin; Z88.2 Allergy status to sulfonamides; Z91.048 Other nonmedicinal substance allergy status; Z90.49 Acquired absence of other specified parts of digestive tract; Z96.653 Presence of artificial knee joint, bilateral; Z95.5 Presence of coronary angioplasty implant and graft; Z90.710 Acquired absence of both cervix and uterus; Z98.890 Other specified postprocedural states; Z87.891 Personal history of nicotine dependence